=== PATIENT | female | born 1995 | race Caucasian/White ===

== ENCOUNTER 2016-10-21 20:07 | Emergency (ER) | payer OTHER | END 2016-10-21 21:45 | disposition home or self-care (01) | LOC: ER1 20:07 | DX: S62.627A Displaced fracture of middle phalanx of left little finger, initial encounter for closed fracture (principal); W07.XXXA Fall from chair, initial encounter; Y92.830 Public park as the place of occurrence of the external cause | CPT/HCPCS: 29125; 73130; 99283 ==